=== PATIENT | female | born 1980 | race African-American/Black ===

== ENCOUNTER 2020-06-07 19:57 | Observation (INO) | payer MEDICAID, OTHER ==
[~2020-06-07] VITALS: Ht 180.3 cm; Wt 120.2 kg
[2020-06-07] MEDS ORDERED: FERR325T6 PO (20:27)
[2020-06-07] MEDS ORDERED: PREN-182 PO (20:27)
[2020-06-07 22:36] LABS: BASOPHILS % 0.1 % (0.0-2.0); CLARITY URINE CLEAR (CLEAR); COLOR URINE YELLOW (YELLOW); EOSINOPHILS % 0.7 % (0.0-5.0); HEMATOCRIT. 31.2 % (36.0-48.0); HEMOGLOBIN. 10.6 g/dL (12.0-16.0); KETONES URINE TRACE (NEGATIVE); LEUKOCYTE ESTERASE URINE TRACE (NEGATIVE); LYMPHOCYTES % 31.6 % (20.0-50.0); MEAN CORPUSCULAR HEMOGLOBIN 32.9 pg (28.0-32.0); MEAN CORPUSCULAR VOLUME 96.9 fL (81.0-99.0); MEAN PLATELET VOLUME 8.3 fl (7.4-10.4); NEUTROPHILS % 61.6 % (40.0-76.0); NITRITE URINE NEGATIVE (NEGATIVE); OCCULT BLOOD URINE NEGATIVE (NEGATIVE); PH URINE 6.5 (4.5-8.0); PLATELET 258 x1000/uL (130-400); PROTEIN URINE NEGATIVE (NEGATIVE); RED BLOOD CELL COUNT 3.22 mill/uL (4.2-5.4); RED CELL DISTRIBUTION WIDTH 13.6 % (11.6-14.6); SPECIFIC GRAVITY URINE 1.008 (1.005-1.030)
[2020-06-07 22:40] LABS: CHLORIDE 107 mEq/L (98-107)
[2020-06-07 22:47] LABS: D-DIMER 2.05 mg/L FEU (<0.50); PARTIAL THROMBOPLASTIN TIME 29.5 sec (23.4-31.0); PROTHROMBIN TIME 10.1 sec (9.6-11.0)
[2020-06-07] MEDS ORDERED: POTASSIUM CHLORIDE 20MEQ TABLET SR PO NR (23:26)
== END 2020-06-08 | disposition home or self-care (01) ==
LOC: INTOOBSV 19:57 → 8 EST LDRP 19:57
PROVIDERS: ADMIT Obstetrics & Gynecology; ATTEND Obstetrics & Gynecology
DX: O16.3 Unspecified maternal hypertension, third trimester (principal); Z3A.38 38 weeks gestation of pregnancy
CPT/HCPCS: 36415; 59025; 80053; 81003; 84550; 85025; 85379; 85384; 85610; 85730; G0378; 99281

== ENCOUNTER 2020-06-16 11:02 | Observation (INO) | payer OTHER ==
[~2020-06-16] VITALS: Ht 180.3 cm; Wt 122.5 kg
[~2020-06-16 11:02] MED LIST: FERR325T6 PO; PREN-182 PO
[2020-06-16] MEDS ORDERED: LACTATED RINGERS 1,000 ML IV ONE (12:15)
[2020-06-17] MEDS ORDERED: LACTATED RINGERS 1,000 ML IV SCH (12:15)
== END 2020-06-16 14:25 | disposition home or self-care (01) ==
LOC: 8 EST LDRP 11:02
PROVIDERS: ADMIT Obstetrics & Gynecology; ATTEND Obstetrics & Gynecology
DX: O62.9 Abnormality of forces of labor, unspecified (principal); Z3A.39 39 weeks gestation of pregnancy
CPT/HCPCS: 96360; 96361; 99281; G0378; J7120

== ENCOUNTER 2025-09-19 14:01 | Emergency (ER) | payer OTHER ==
[~2025-09-19] VITALS: Ht 177.8 cm; Wt 120.0 kg
[2025-09-19 14:20] VITALS: O2SAT 97
[2025-09-19] MEDS: IBUPROFEN 400MG TABLET PO ONE (16:01)
[2025-09-19] MEDS ORDERED: TOPUD MT (16:55)
[2025-09-19] MEDS ORDERED: AMOX1TAB16 MT (16:55)
[2025-09-19 17:00] VITALS: BP 149/89; PULSE 81; RESP 16; TEMP 36.8; O2SAT 97
== END 2025-09-19 17:02 | disposition home or self-care (01) ==
LOC: ER 14:01
DX: H66.91 Otitis media, unspecified, right ear (principal); F10.90 Alcohol use, unspecified, uncomplicated; F12.90 Cannabis use, unspecified, uncomplicated; Z79.899 Other long term (current) drug therapy; Y90.9 Presence of alcohol in blood, level not specified
CPT/HCPCS: 99283